=== PATIENT | female | born 1990 | race Caucasian/White ===

== ENCOUNTER 2016-12-01 14:10 | Emergency (ER) | payer SELFPAY ==
[~2016-12-01] VITALS: Wt 90.7 kg
[~2016-12-01 14:10] MED LIST: ANAPROX DS550 MG PO; AUGMENTIN 875875 MG PO; BACTRIM DS 8001 TA1 PO; CEFZIL500 MG PO; CLARITIN10 MG PO; EES400 MG PO; FLEXERIL5 MG PO; Motrin,Rufen800 MG PO; NEXIUM40 MG PO; NKHM; PHENERGAN25 M1 PO; PYRIDIUM200 M1 PO; PYRIDIUM200 MG PO; TRIMOX500 MG PO; ZITHROMAX250 MG PO
[2016-12-01] MEDS ORDERED: OMNICEF300 MG PO (14:28)
[2016-12-01] MEDS ORDERED: ZYRTEC10 MG PO (14:28)
== END 2016-12-01 14:38 | disposition home or self-care (01) ==
LOC: ED 14:10
DX: H65.92 Unspecified nonsuppurative otitis media, left ear (principal); Z98.890 Other specified postprocedural states; Z90.49 Acquired absence of other specified parts of digestive tract; Z79.899 Other long term (current) drug therapy; Z88.1 Allergy status to other antibiotic agents

== ENCOUNTER 2019-07-24 20:16 | Emergency (ER) | payer BC ==
[~2019-07-24] VITALS: Ht 170.1 cm; Wt 136.1 kg
[~2019-07-24 20:16] MED LIST changes: +OMNICEF300 MG PO; +ZYRTEC10 MG PO
[2019-07-24] MEDS ORDERED: PROAIR HFA8.5 GM INH (22:34)
[2019-07-24] MEDS ORDERED: TESSALON PERLE100 M1 PO (22:34)
== END 2019-07-24 22:45 | disposition home or self-care (01) ==
LOC: ED 20:16
DX: S22.31XA Fracture of one rib, right side, initial encounter for closed fracture (principal); K21.9 Gastro-esophageal reflux disease without esophagitis; Z88.1 Allergy status to other antibiotic agents; Z79.899 Other long term (current) drug therapy; X58.XXXA Exposure to other specified factors, initial encounter; Y93.89 Activity, other specified; Y92.89 Other specified places as the place of occurrence of the external cause; Y99.8 Other external cause status

== ENCOUNTER 2020-06-16 16:27 | Emergency (ER) | payer MEDICAID ==
[~2020-06-16] VITALS: Ht 170.1 cm; Wt 131.5 kg
[~2020-06-16 16:27] MED LIST changes: +PROAIR HFA8.5 GM INH; +TESSALON PERLE100 M1 PO
[2020-06-16 17:07] LABS: BILIRUBIN Negative (Negative); BLOOD 3+ (Negative); CLARITY Turbid (Clear); COLOR Yellow (Yellow); GLUCOSE Negative (Negative); KETONE Trace (Negative); LEUKO ESTERASE 3+ (Negative); NITRITE Negative (Negative); SPECIFIC GRAVITY 1.025 (1.001-1.030); UROBILINOGEN 0.2 E.U./dl (0.0-1.0)
[2020-06-16 17:22] LABS: BACTERIA 3+; EPITHELIAL CELLS 16-20; RBC TNTC rbc/hpf (0-2); WBC TNTC wbc/hpf (0-5)
[2020-06-16] MEDS ORDERED: PYRIDIUM200 M1 PO ×2 (17:30→17:49)
[2020-06-16] MEDS ORDERED: SEPTDS PO ×2 (17:30→17:49)
== END 2020-06-16 18:00 | disposition home or self-care (01) ==
LOC: ED 16:27
PROVIDERS: Physician Assistant
DX: N39.0 Urinary tract infection, site not specified (principal); K21.9 Gastro-esophageal reflux disease without esophagitis; Z88.8 Allergy status to other drugs, medicaments and biological substances; Z79.899 Other long term (current) drug therapy; Z98.890 Other specified postprocedural states; Z90.49 Acquired absence of other specified parts of digestive tract